=== PATIENT | male | born 1975 ===

== ENCOUNTER 2018-01-22 15:22 | Observation (INO) ==
[2018-01-22] MEDS ORDERED: cefTRIAXone 1,000 MG in SYRINGE 1 EACH IV ONE (16:07)
[2018-01-22] MEDS ORDERED: ONDANSETRON 4 MG/2 ML VIAL IV ONE (17:13)
[2018-01-22] MEDS ORDERED: HYDROmorphone 2 MG/1 ML VIAL IV ONE (17:13)
[2018-01-22] MEDS ORDERED: ONDANSETRON 4 MG/2 ML VIAL IV PRN (17:49)
[2018-01-22] MEDS ORDERED: PROMETHAZINE 25 MG/1 ML VIAL IM PRN (17:49)
[2018-01-22] MEDS ORDERED: ACETAMINOPHEN 325 MG TABLET PO PRN (17:49)
[2018-01-22] MEDS: SODIUM CHLORIDE 0.45% 1,000 ML IV SCH (18:07)
[2018-01-22 18:35] LABS: Basophils % 0.1 % (0.0-0.8); Eosinophils # 0.2 10*3/uL (0.0-0.87); Eosinophils % 2.4 % (0.00-10.9); Hematocrit 43.9 VOL% (42.0-52.0); Hemoglobin 14.4 GM/DL (14.0-18.0); Immature Granulocytes % 0.4 %; Immature Granulocytes Absolute 0.03 #; Lymphocytes # 1.3 10*3/uL (1.4-4.0); Lymphocytes % 16.7 % (21.2-54.2); Mean Corpuscular HGB Conc 32.8 GM/DL (32-36); Mean Corpuscular Hemoglobin 31 PG (27-34); Mean Corpuscular Volume 93.4 FL (87-102); Mean Platelet Volume 10.1 FL (9.6-12.0); Monocytes # 0.8 10*3/uL (0.11-0.8); Monocytes % 10.4 % (1.7-12.7); Neutrophils # 5.6 10*3/uL (1.4-7.4); Platelet Count 227 T/CUMM (130-400); Red Cell Distribution Width 12.6 % (9.3-17.3)
[2018-01-22 18:46] LABS: Calcium 8.3 MG/DL (8.5-10.1); Osmolality,Calculated 281.4 MOS/KG (273-304); Potassium 4.2 MMOL/L (3.5-5.1)
[2018-01-22 20:30] LABS: Apearance,Urine Slightly Hazy (Clear); Bilirubin,Urine Negative (Negative); Blood, Urine Moderate mg/dL (Negative); Glucose,Urine (UA) Negative (Negative); Hyaline Casts,Urine 1 /LPF (0-3); Ketones,Urine Negative (Negative); Mucus,Urine Few /LPF (Occasional); Nitrite,Urine Negative (Negative); Protein,Urine 30 MG/DL; RBC,Urine 38 /HPF (0-4); Squamous Epithelial Cell,Urine Occasional /HPF (0-10); Urine Color Amber (Yellow); Urine Specific Gravity 1.032 (1.001-1.035); WBC,Urine 16 /HPF (0-6)
[2018-01-22] MEDS: HYDROmorphone 2 MG/1 ML VIAL IV PRN (21:45)
[2018-01-23] MEDS: SODIUM CHLORIDE 0.45% 1,000 ML IV SCH ×3 (02:10→17:35)
[2018-01-23] MEDS: HYDROmorphone 2 MG/1 ML VIAL IV PRN ×2 (05:28→10:17)
[2018-01-23] MEDS ORDERED: cefTRIAXone 1,000 MG in SYRINGE 1 EACH IV ONE (06:30)
[2018-01-23] MEDS: TAMSULOSIN 0.4 MG CAPSULE PO SCH (08:07)
[2018-01-23] MEDS ORDERED: PROPOFOL 200 MG/20 ML VIAL IV ONE (14:27)
[2018-01-23] MEDS ORDERED: MIDAZOLAM 2 MG/2 ML VIAL ONE (14:27)
[2018-01-23] MEDS ORDERED: SEVOFLURANE 1 UNIT/15 MINUTE INH ONE (14:27)
[2018-01-23] MEDS ORDERED: fentaNYL 100 MCG/2 ML VIAL ONE (14:28)
[2018-01-23] MEDS ORDERED: ONDANSETRON 4 MG/2 ML VIAL ONE ×2 (14:28→15:05)
[2018-01-23] MEDS ORDERED: ROCURONIUM 100 MG/10 ML VIAL IV ONE (14:28)
[2018-01-23] MEDS ORDERED: GLYCOPYRROLATE 0.4 MG/2 ML VIAL ONE (14:28)
[2018-01-23] MEDS ORDERED: NEOSTIGMINE 10 MG/10 ML VIAL ONE (14:29)
[2018-01-23] MEDS ORDERED: HYDROmorphone 2 MG/1 ML VIAL IV PRN (15:04)
[2018-01-23] MEDS ORDERED: ONDANSETRON 4 MG/2 ML VIAL IV PRN (15:04)
[2018-01-23] MEDS ORDERED: HYDROmorphone 2 MG/1 ML VIAL ONE (15:05)
[2018-01-23] MEDS ORDERED: cefTRIAXone 1,000 MG in SYRINGE 1 EACH IV SCH (16:00)
[2018-01-23] MEDS: NICOTINE 21 MG/24 HR PATCH TRANSDERM SCH (23:52)
[2018-01-24] MEDS: HYDROmorphone 2 MG/1 ML VIAL IV PRN ×2 (01:58→08:13)
[2018-01-24] MEDS: SODIUM CHLORIDE 0.45% 1,000 ML IV SCH ×2 (02:01→07:49)
[2018-01-24 08:28] LABS: Calcium 8.6 MG/DL (8.5-10.1); Osmolality,Calculated 282.3 MOS/KG (273-304); Potassium 3.7 MMOL/L (3.5-5.1)
[2018-01-24] MEDS: NICOTINE 21 MG/24 HR PATCH TRANSDERM SCH (09:10)
[2018-01-24] MEDS: TAMSULOSIN 0.4 MG CAPSULE PO SCH (09:11)
[2018-01-24 14:00] VITALS: BP 129/85
[2018-01-30 15:36] LABS: Stone Source Passed Stone
== END 2018-01-24 13:45 | disposition home or self-care (01) ==
LOC: EDBD → EDUNIT# → N.ED 15:22 → N.EDINP 15:22 → N.5E 17:08
PROVIDERS: ADMIT Surgery; ATTEND Surgery

== ENCOUNTER 2018-06-06 00:05 | Observation (INO) ==
[2018-06-06] MEDS ORDERED: ONDANSETRON 4 MG/2 ML VIAL IV PRN (02:41)
[2018-06-06] MEDS: SODIUM CHLORIDE 0.9% 1,000 ML IV SCH ×4 (02:51→23:36)
[2018-06-06 05:02] LABS: Basophils % 0.1 % (0.0-0.8); Eosinophils % 0.3 % (0.00-10.9); Hematocrit 45.7 VOL% (42.0-52.0); Hemoglobin 14.8 GM/DL (14.0-18.0); Immature Granulocytes % 0.4 %; Immature Granulocytes Absolute 0.03 #; Lymphocytes # 0.9 10*3/uL (1.4-4.0); Lymphocytes % 12.6 % (21.2-54.2); Mean Corpuscular HGB Conc 32.4 GM/DL (32-36); Mean Corpuscular Hemoglobin 31 PG (27-34); Mean Corpuscular Volume 95.2 FL (87-102); Mean Platelet Volume 10.7 FL (9.6-12.0); Monocytes # 0.7 10*3/uL (0.11-0.8); Monocytes % 9.6 % (1.7-12.7); Neutrophils # 5.4 10*3/uL (1.4-7.4); Platelet Count 224 T/CUMM (130-400); White Blood Count 7.1 T/CUMM (4-12)
[2018-06-06 05:33] LABS: Albumin 3.5 G/DL (3.4-5.0); Calcium 7.6 MG/DL (8.5-10.1); Osmolality,Calculated 286.3 MOS/KG (273-304); Potassium 3.6 MMOL/L (3.5-5.1); Total Protein 6.7 G/DL (6.4-8.3)
[2018-06-06] MEDS: PANTOPRAZOLE 40 MG TABLET PO SCH (10:05)
[2018-06-06] MEDS: amLODIPine 10 MG TABLET PO SCH (10:05)
[2018-06-06] MEDS: TAMSULOSIN 0.4 MG CAPSULE PO SCH (10:05)
[2018-06-06] MEDS ORDERED: diphenhydrAMINE CAP 25 MG CAPSULE PO ONE (21:14)
[2018-06-07] MEDS: SODIUM CHLORIDE 0.9% 1,000 ML IV SCH (06:22)
[2018-06-07 07:03] LABS: Basophils % 0.2 % (0.0-0.8); Eosinophils # 0.1 10*3/uL (0.0-0.87); Eosinophils % 2.3 % (0.00-10.9); Hematocrit 38.1 VOL% (42.0-52.0); Immature Granulocytes % 0.4 %; Immature Granulocytes Absolute 0.02 #; Lymphocytes # 1.3 10*3/uL (1.4-4.0); Lymphocytes % 22.7 % (21.2-54.2); Mean Corpuscular HGB Conc 33.6 GM/DL (32-36); Mean Corpuscular Hemoglobin 31 PG (27-34); Mean Corpuscular Volume 91.8 FL (87-102); Mean Platelet Volume 9.8 FL (9.6-12.0); Monocytes # 0.7 10*3/uL (0.11-0.8); Monocytes % 12.4 % (1.7-12.7); Neutrophils # 3.5 10*3/uL (1.4-7.4); Platelet Count 198 T/CUMM (130-400); Red Blood Count 4.15 MC/CUMM (3.8-5.5); Red Cell Distribution Width 11.8 % (9.3-17.3); White Blood Count 5.6 T/CUMM (4-12)
[2018-06-07 07:04] LABS: Hemoglobin 12.8 GM/DL (14.0-18.0)
[2018-06-07 07:29] LABS: Alanine Aminotransferase 22 U/L (16-61); Albumin 2.7 G/DL (3.4-5.0); Alkaline Phosphatase 73 U/L (45-117); Aspartate Amino Transferase 9 U/L (0-37); Bilirubin,Total < 0.39 MG/DL (0.2-1.0); Blood Urea Nitrogen 11 MG/DL (7-18); Calcium 7.4 MG/DL (8.5-10.1); Glucose 105 MG/DL (74-106); Osmolality,Calculated 279.3 MOS/KG (273-304); Potassium 3.5 MMOL/L (3.5-5.1); Sodium 141 MMOL/L (136-145); Total Protein 5.8 G/DL (6.4-8.3)
[2018-06-07 08:50] VITALS: BP 118/66
[2018-06-07] MEDS: amLODIPine 10 MG TABLET PO SCH (09:20)
[2018-06-07] MEDS: PANTOPRAZOLE 40 MG TABLET PO SCH (09:20)
[2018-06-07] MEDS: TAMSULOSIN 0.4 MG CAPSULE PO SCH (09:20)
== END 2018-06-07 10:39 | disposition home or self-care (01) ==
LOC: SUATTDRO 01:29 → INTOOBSV 01:29 → N.5E 01:29
PROVIDERS: ADMIT Internal Medicine; ATTEND Internal Medicine